=== PATIENT | female | born 1985 | race Caucasian/White ===

== ENCOUNTER 2016-10-11 15:45 | Observation (INO) | payer OTHER ==
[2016-10-11 16:07] LABS: Appearance,Urine Cloudy (Clear); Bacteria,Urine Rare /hpf; Bilirubin,Urine Negative (Negative); Glucose,Urine (UA) Negative (Negative); Ketones,Urine Negative (Negative); Leukocyte Esterase,Urine Negative (Negative); Mucus,Urine Few /hpf; Nitrite,Urine Negative (Negative); Particle Count 6170; Protein,Urine Negative (Negative); RBC,Urine 1 /hpf (0-5); Specific Gravity,Urine 1.015 (1.001-1.035); Squamous Epithelial Cell,Urine 7 /hpf (0-4); UA Billing (MACRO vs. MICRO) MICRO; WBC,Urine 2 /hpf (0-5)
[2016-10-11 16:23] LABS: Basophils % (A) 0 %; CH 29.2; CHCM 33.6; Eosinophils # (A) 0.1 k/uL (0-0.7); Eosinophils % (A) 1 %; HCT 36.8 % (34.0-46.0); HGB 12.1 gm/dL (11.4-16.0); Luc # (Auto) 0.25; Luc % (Auto) 3; Lymphocytes # (A) 1.7 k/uL (1.0-4.8); Lymphocytes % (A) 21 %; MCH 28.8 pg (25.0-35.0); MCHC 32.9 g/dL (31.0-37.0); MCV 87.5 fL (80.0-100.0); Mean Platelet Volume 8.5; Monocytes # (A) 0.5 k/uL (0-1.0); Monocytes % (A) 6 %; Neutrophils # (A) 5.7 k/uL (1.3-7.7); Neutrophils % (A) 69 %; RBC 4.21 m/uL (3.80-5.40); RDW 13.8 % (11.5-15.5); WBC 8.2 k/uL (3.8-10.6); WBC (Perox) 8.73
[2016-10-11 16:25] LABS: ALT 25 U/L (9-52); AST 13 U/L (14-36); LDH 359 U/L (313-618); Non-African American GFR(MDRD) >60 (>60 ml/min/1.73 sqM); Uric Acid 3.8 mg/dL (3.7-7.4)
[2016-10-11 18:25] VITALS: BMI 48.2
--- NOTE | 2016-10-11 19:51 | P.HPOB ---
History of Present Illness H&P Date: 10/11/16 Chief Complaint: Interim 35 weeks elevated blood pressure Katharine is a 31-year-old at 35 weeks gestation who was seen in the office today and was noted to have a blood pressure of approximately 150/98. She was sent over from labor and delivery at that time for rule out preeclampsia versus new onset gestational hypertension. Prior to today her blood pressures had been generally unremarkable with the majority of them being in the 120s over 70s and 130s over 80s. She also has a significant increase in her swelling today over last week. She does not complain of headache nor epigastric pain. Overall she seems stable. Other vital signs are all stable. Her course generally speaking to this point has been unremarkable. She's had elevated 1 hour ColoScreen and has had 3R Glucola screens which were normal. She does have a positive blood type Rh and it was negative. Rubella was immune. Hepatitis B surface antigen and RPR were negative. We are admitting her for a 24-hour urine and serial blood pressures. A review of her preeclamptic labs reveals normal AST, alt, a uric acid, LDH and trace protein. At this time she exhibits no signs of preeclampsia. On physical exam her heart is regular, lungs are clear, extremities are without pain. She does Exhibit 2+ deep tendon reflexes in both upper and lower extremities, and she has 2-3+ pitting edema bilateral lower extremities with trace edema in her hands and face.. Her abdomen is otherwise soft gravid uterus is noted. heart tones are in the 130s to 140s and have been reactive. She does have bowel sounds. There is no evidence of epigastric pain on palpation. Assessment intrauterine at 35 weeks with suspected gestational hypertension rule out preeclampsia. Plan 24 hour urine and serial blood pressures Review of Systems All systems: negative Constitutional: Denies chills, Denies fever Eyes: denies blurred vision, denies pain Ears, nose, mouth and throat: Denies headache, Denies sore throat Cardiovascular: Denies chest pain, Denies shortness of breath Respiratory: Denies cough Gastrointestinal: Denies abdominal pain, Denies diarrhea, Denies nausea, Denies vomiting Genitourinary: Denies dysuria, Denies hematuria Musculoskeletal: Denies myalgias Integumentary: Denies pruritus, Denies rash Neurological: Denies numbness, Denies weakness Psychiatric: Denies anxiety, Denies depression Endocrine: Denies fatigue, Denies weight change Past Medical History Past Medical History: Syncope History of Any Multi-Drug Resistant Organisms: None Reported Past Surgical History: No Surgical Hx Reported Past Anesthesia/Blood Transfusion Reactions: No Reported Reaction Past Psychological History: No Psychological Hx Reported Smoking Status: Never smoker Past Alcohol Use History: None Reported Past Drug Use History: None Reported - Past Family History Mother History Unknown: Yes Medications and Allergies Allergies Allergy/AdvReac Type Severity Reaction Status Date / Time latex Allergy Rash/Hives Verified 10/11/16 15:50 Exam Osteopathic Statement: *. No significant issues noted on an osteopathic structural exam other than those noted in the History and Physical/Consult. - Vital Signs Vital signs: Vital Signs Temp Pulse Resp BP 10/11/16 17:14 98.4 F 108 H 18 158/90 Intake and Output 10/11/16 10/11/16 10/11/16 06:59 14:59 22:59 Other: Weight 139.706 kg Patient Weight 10/12/16 06:59 Weight 139.706 kg - OBG Physical Exam Abdomen: bowel sounds normal, no diffuse tenderness, no bruit present, no guarding noted, no hepatomegaly, no splenomegaly, no mass Results Result Diagrams: 10/11/16 16:05 10/11/16 16:05 Abnormal Lab Results - Last 24 Hours (Table) 10/11/16 10/11/16 Range/Units 15:54 16:05 Creatinine 0.40 L (0.52-1.04) mg/dL AST 13 L (14-36) U/L Urine Appearance Cloudy H (Clear) Ur Squamous Epith Cells 7 H (0-4) /hpf Urine Bacteria Rare H (None) /hpf Urine Mucus Few H (None) /hpf
--- NOTE | 2016-10-12 09:24 | P.PN ---
Progress Note - Text December is seen and evaluated this morning. Review of her blood pressures since last night reveals 1 elevated blood pressure 150/90. The remainder of all been normal. She is even had a few that were low 100s over 70s. She denies any symptoms this morning of preeclampsia. She is doing well on modified bedrest. The 24-hour urine is still pending. We'll plan to wait for that value and as long as it is within normal range are only slightly elevated we'll plan to discharge her to home and have her follow up on Sunday for blood pressure check and nonstress test. She will then see me also on Sunday or for another blood pressure check and nonstress test. I did explain to her that should she get past 37 weeks and began having her blood pressures again she will likely need to be delivered at that time due to gestational hypertension. At this time and not certain she has gestational hypertension based on 2 values within 4 hours but will monitor closely for the remainder the to verify this is not the case. All questions are answered for her at this time. On physical exam currently her vital signs again are stable and she is afebrile. Her heart is regular, lungs are clear, extremities are without pain and the swelling appears to be improved somewhat with her being on modified bedrest. Assessment intrauterine at 35 weeks with elevated blood pressures yesterday.? Gestational hypertension versus mild preeclampsia versus random elevated blood pressure. Plan: Await 24-hour urine sample for protein and normal have her follow up on Sunday for blood pressure check and NST.
[2016-10-12 15:54] VITALS: PULSE 103; TEMP 96.8
[2016-10-12 20:31] VITALS: BP 138/88; RESP 16
== END 2016-10-12 20:20 | disposition home or self-care (01) ==
LOC: FBPOP 15:45 → 4FBP 17:05
PROVIDERS: ADMIT Obstetrics & Gynecology; ATTEND Obstetrics & Gynecology
DX: O26.893 Other specified pregnancy related conditions, third trimester (principal); Z3A.35 35 weeks gestation of pregnancy; R03.0 Elevated blood-pressure reading, without diagnosis of hypertension; R60.9 Edema, unspecified
CPT/HCPCS: 59025; 81050; 82565; 83615; 84450; 84460; 84550; 85025; 81001; 84156; G0463; G0378 ×2; 99215

== ENCOUNTER 2016-10-24 15:47 | Inpatient (IN) | payer OTHER ==
[2016-10-24] MEDS ORDERED: DINOPROSTONE 10 MG INSERT.ER VAGINAL ONE (15:57)
[2016-10-24 16:35] VITALS: BMI 48.2
[2016-10-24] MEDS ORDERED: fentaNYL (PF) 50 MCG/ML 5 ML AMP ONE (18:00)
[2016-10-24] MEDS ORDERED: SODIUM CHLORIDE 0.9% 100 ML BAG ONE (18:00)
[2016-10-24] MEDS ORDERED: BUPIVACAINE (PF) 0.25% 30 ML VIAL ONE (18:00)
[2016-10-25] MEDS ORDERED: LIDOCAINE 1% (PF) 10 MG/ML (30 ML SDV) SQ PRN (05:53)
[2016-10-25] MEDS ORDERED: CARBOPROST TROMETHAMINE 250 MCG/ML 1 ML AMP IM PRN (05:53)
[2016-10-25] MEDS ORDERED: TERBUTALINE 1 MG/ML VIAL SQ PRN (05:53)
[2016-10-25] MEDS ORDERED: OXYTOCIN 10 UNIT/ML 1 ML VIAL IM PRN (05:53)
[2016-10-25] MEDS ORDERED: METHYLERGONOVINE 0.2 MG/ML 1 ML AMP IM PRN (05:53)
[2016-10-25] MEDS ORDERED: OXYTOCIN 30 UNITS/500 ML NS 30 UNIT in SALINE 1 500ML.BAG IV SCH ×2 (06:00→22:30)
[2016-10-25 06:19] LABS: Basophils % (A) 1 %; CH 29.8; CHCM 33.9; Eosinophils # (A) 0.1 k/uL (0-0.7); Eosinophils % (A) 1 %; HGB 12.3 gm/dL (11.4-16.0); Luc # (Auto) 0.18; Luc % (Auto) 2; Lymphocytes # (A) 1.9 k/uL (1.0-4.8); Lymphocytes % (A) 22 %; MCH 29.2 pg (25.0-35.0); MCHC 33.1 g/dL (31.0-37.0); MCV 88.3 fL (80.0-100.0); Mean Platelet Volume 8.8; Monocytes # (A) 0.4 k/uL (0-1.0); Monocytes % (A) 4 %; Neutrophils # (A) 6.2 k/uL (1.3-7.7); Neutrophils % (A) 71 %; RBC 4.19 m/uL (3.80-5.40); RDW 15.1 % (11.5-15.5); WBC 8.8 k/uL (3.8-10.6); WBC (Perox) 8.83
[2016-10-25] MEDS: LACTATED RINGERS 1,000 ML IV SCH ×3 (06:59→18:37)
[2016-10-25] MEDS: BUTORPHANOL 1 MG/ML 1 ML VIAL IV PRN ×4 (13:05→17:13)
[2016-10-25] MEDS ORDERED: diphenhydrAMINE 50 MG CAP PO PRN (22:29)
[2016-10-25] MEDS ORDERED: HYDROCORTISONE 2.5% RECTAL CREAM 30 GM TUBE RECTAL PRN (22:29)
[2016-10-25] MEDS ORDERED: ACETAMINOPHEN TAB 325 MG TAB PO PRN (22:29)
[2016-10-25] MEDS ORDERED: IBUPROFEN 600 MG TAB PO PRN (22:29)
[2016-10-25] MEDS ORDERED: diphenhydrAMINE 25 MG CAP PO PRN (22:29)
[2016-10-25] MEDS ORDERED: SIMETHICONE 80 MG CHEWABLE PO PRN (22:29)
[2016-10-25] MEDS ORDERED: ZOLPIDEM 5 MG TAB PO PRN (22:29)
[2016-10-25] MEDS ORDERED: diphenhydrAMINE 50 MG/ML 1 ML VIAL IVP PRN ×2 (22:29)
[2016-10-25] MEDS ORDERED: Acetaminophen-Codeine 300-30mg TAB PO PRN ×2 (22:29)
[2016-10-25] MEDS ORDERED: BENZOCAINE/MENTHOL SPRAY 1 GM/SPRAY AEROSOL TOPICAL PRN (22:29)
[2016-10-25] MEDS ORDERED: WITCH HAZEL 1 EACH MED..PAD TOPICAL PRN (22:29)
[2016-10-25] MEDS ORDERED: LANOLIN CREAM 5 GM TUBE TOPICAL PRN (22:29)
--- NOTE | 2016-10-25 22:33 | P.HPOB ---
History of Present Illness H&P Date: 10/25/16 Chief Complaint: Intrauterine at term: Gestational hypertension Katharine is a 31-year-old weeks gestation arise for induction of labor secondary to gestational hypertension. Over the latter part of the her last 2-3 weeks she is had elevated blood pressures. Preeclamptic labs had been drawn all been normal and she is feeling overall well at this time. Her pertinent labs do include A+ blood type Rh have a negative rubella was immune hepatitis B surface antigen and RPR were negative. Group B strep was also negative. She did fail her 1 hour but did pass her 3 her Glucola screen. Other than her gestational hypertension her course was unremarkable. On exam she was dilated 1 cm 90% effaced -3 station artificial rupture membranes was performed and clear fluid is noted. On physical exam her vital signs are stable and afebrile. Her heart is regular , lungs are clear, extremities are without pain. Gravid uterus is noted. heart tones 140s and reactive. Initial blood pressure this morning was 140/84. She does have an ALLERGY to latex. Review of Systems All systems: negative Constitutional: Denies chills, Denies fever Eyes: denies blurred vision, denies pain Ears, nose, mouth and throat: Denies headache, Denies sore throat Cardiovascular: Denies chest pain, Denies shortness of breath Respiratory: Denies cough Gastrointestinal: Denies abdominal pain, Denies diarrhea, Denies nausea, Denies vomiting Genitourinary: Denies dysuria, Denies hematuria Musculoskeletal: Denies myalgias Integumentary: Denies pruritus, Denies rash Neurological: Denies numbness, Denies weakness Psychiatric: Denies anxiety, Denies depression Endocrine: Denies fatigue, Denies weight change Past Medical History Past Medical History: Syncope History of Any Multi-Drug Resistant Organisms: None Reported Past Surgical History: No Surgical Hx Reported Past Anesthesia/Blood Transfusion Reactions: No Reported Reaction Past Psychological History: No Psychological Hx Reported Smoking Status: Never smoker Past Alcohol Use History: None Reported Past Drug Use History: None Reported - Past Family History Mother History Unknown: Yes Medications and Allergies Home Medications Medication Instructions Recorded Confirmed Type Pnv with Ca,No.72/Iron/FA 1 tab PO DAILY 10/18/16 10/24/16 History [ Plus Tablet] Allergies Allergy/AdvReac Type Severity Reaction Status Date / Time latex Allergy Rash/Hives Verified 10/24/16 15:57 Exam Osteopathic Statement: *. No significant issues noted on an osteopathic structural exam other than those noted in the History and Physical/Consult. - Vital Signs Vital signs: Intake and Output 10/25/16 10/25/16 10/25/16 06:59 14:59 22:59 Intake Total 1200 Balance 1200 Intake: IV 1200 Lactated Ringers 1,000 ml 1200 @ 125 mls/hr IV .Q8H [facility] Rx#:[id number] Other: # Voids 1 - OBG Physical Exam Breast: both: normal (no masses) Abdomen: bowel sounds normal, no diffuse tenderness, no bruit present, no guarding noted, no hepatomegaly, no splenomegaly, no mass Vulva: both: normal Vagina: normal moisture, no discharge Cervix: no lesion, no discharge Uterus: normal size, normal contour Adnexa: both: normal Anus/Rectum: normal perianal skin, no rectal mass, no hemorrhoids, heme negative Results Result Diagrams: 10/25/16 06:11
--- NOTE | 2016-10-25 22:35 | P.PROBDLV ---
Vaginal Delivery Note - . Vaginal Delivery Note: Patient patient progressed to complete and pushing with spontaneous vaginal delivery of a viable male over a second-degree midline laceration. Following delivery of the head anterior posterior shoulders were delivered gentle downward upper traction followed by the remainder the baby. Mouth nares were then bulb suctioned and baby was placed on mother's abdomen where the umbilical cord was clamped cut usual fashion. Placenta was then delivered intact Pitocin was added to the IV the midline laceration repaired with 3-0 Vicryl following 1% Xylocaine for analgesia. It is noted that she has a hematoma forming at the vaginal introitus is not expanding and we'll plan to apply ice and monitor. Otherwise she is stable. scores were 7 and 8 at one and 5 minutes respectively and the weight was 8 lbs. 7 oz. Again both mother and baby are overall stable at this time.
[2016-10-26] MEDS: SENNOSIDES-DOCUSATE SODIUM 1 EACH TAB PO SCH ×2 (08:59→21:15)
--- NOTE | 2016-10-26 09:27 | P.PNOBGVD ---
Subjective - Subjective Principal diagnosis: day 1 Interval history: Overall Katharine is doing very well. She is ambulating, voiding, and she is tolerating her diet. She voices no complaints. Vital signs are stable and afebrile. : in NICU (Had some breathing problems appear stable) Objective - Latest Vital Signs Latest vital signs: Vital Signs Temp Pulse Resp BP Pulse Ox 10/26/16 08:00 98.4 F 107 H 16 133/85 10/26/16 04:00 97.9 F 106 H 16 150/81 10/26/16 00:23 97.1 F L 117 H 16 158/72 10/25/16 23:53 120 H 16 158/77 10/25/16 23:23 124 H 17 157/75 95 10/25/16 23:08 121 H 17 168/79 100 10/25/16 22:53 122 H 18 126/58 100 10/25/16 22:38 124 H 18 137/63 99 10/25/16 22:23 97.0 F L 120 H 20 146/92 Intake and Output 10/25/16 10/26/16 10/26/16 22:59 06:59 14:59 Intake Total 390.283 590 Output Total 200 Balance 190.283 590 Intake: IV 375 250 Lactated Ringers 1,000 ml 375 250 @ 125 mls/hr IV .Q8H [facility] Rx#:[id number] Intake, IV Titration 15.283 340 Amount Oxytocin 30 Units/500 ml 15.283 Ns 30 unit In Saline 1 500ml.bag @ 1 MILLIUNIT/ MIN 1 mls/hr IV .Q24H [facility] Rx#:[id number] Oxytocin 30 Units/500 ml 340 Ns 30 unit In Saline 1 500ml.bag @ 120 MILLIUNIT /MIN 120 mls/hr IV . Q4H10M [facility] Rx#:[id number] Output: Urine 200 - Exam Lungs: bilateral: normal Chest: Normal S1, Normal S2 Extremities: Present: normal Abdomen: Present: normal appearance, soft Uterus: Present: normal, firm
[2016-10-26 23:05] VITALS: RESP 16
--- NOTE | 2016-10-27 08:25 | P.DS ---
Providers Date of admission: 10/24/16 15:47 Expected date of discharge: 10/27/16 Attending physician: Link Vasquez Primary care physician: Ryan Casper Procedures: Katharine is doing very well day 2. She is ambulating, voiding and she is tolerating her diet. She voices no complaint. On physical exam her vital signs are stable and she is afebrile. Heart is regular, lungs are clear and extremities are without pain. Abdomen soft uterus is firm lochia is reported be light. Inspection of perineum reveals hematoma has diminished dramatically and we'll plan to continue observational care. She'll follow up with me in 6 weeks unless she has other issues discharge instructions thoroughly reviewed. She requests nothing for pain to go home with prescription for breast pump has been provided. Assessment day 2. Plan discharged home follow up me in 6 weeks Plan - Discharge Summary Discharge Medication List Pnv with Ca,No.72/Iron/FA [ Plus Tablet] 1 tab PO DAILY 10/18/16 [ History] Follow up Appointment(s)/Referral(s): Link Vasquez DO [Doctor of Osteopathic Medicine] - 6 Weeks Activity/Diet/Wound Care/Special Instructions: No heavy lifting, limit stairs and driving and pelvic rest. If any high temperatures, heavy bleeding, or severe pain call my office Discharge Disposition: HOME SELF-CARE
[2016-10-27 09:09] VITALS: BP 135/87; PULSE 110; TEMP 98.2
[2016-10-27] MEDS: SENNOSIDES-DOCUSATE SODIUM 1 EACH TAB PO SCH (09:10)
[2016-10-27] MEDS ORDERED: INFLUENZA VACCINE (3YR+) 60 MCG/0.5 ML SYRINGE IM ONE (09:24)
[2016-10-27] MEDS ORDERED: DIPH,PERTUS(ACELL)TETVAC-LF 0.5 ML VIAL IM ONE (09:24)
== END 2016-10-27 14:00 | disposition home or self-care (01) | DRG 775 ==
LOC: 4FBP 15:47
PROVIDERS: ADMIT Obstetrics & Gynecology; ATTEND Obstetrics & Gynecology
PROC: 3E033VJ Introduction of Other Hormone into Peripheral Vein, Percutaneous Approach (ICD-10-PCS; 2016-10-24)
PROC: 00HU33Z Insertion of Infusion Device into Spinal Canal, Percutaneous Approach (ICD-10-PCS; 2016-10-24)
PROC: 3E0R3CZ (ICD-10-PCS; 2016-10-24)
PROC: 10E0XZZ Delivery of Products of Conception, External Approach (ICD-10-PCS; principal; 2016-10-25)
PROC: 0KQM0ZZ Repair Perineum Muscle, Open Approach (ICD-10-PCS; 2016-10-25)
PROC: 3E0234Z Introduction of Serum, Toxoid and Vaccine into Muscle, Percutaneous Approach (ICD-10-PCS; 2016-10-27)
DX: O13.4 Gestational [pregnancy-induced] hypertension without significant proteinuria, complicating childbirth (principal); O70.1 Second degree perineal laceration during delivery; Z37.0 Single live birth; Z23 Encounter for immunization; Z3A.37 37 weeks gestation of pregnancy; Z79.899 Other long term (current) drug therapy; Z91.040 Latex allergy status
CPT/HCPCS: 85025; 88307; 90686; 90715